=== PATIENT | male | born 1965 | race Caucasian/White ===

== ENCOUNTER 2017-07-05 06:05 | Inpatient (IN) | payer OTHER ==
[~2017-07-05 06:05] MED LIST: ROPIVACAINE 0.2% 80 MG, EPINEPHrine 0.2 MG, KETOROLAC TROMETHAMINE 30 MG in BAG 0 ML IU ONE; TRANEXAMIC ACID 3,000 MG in NS 50 ML IRR ONE
[2017-07-05] MEDS ORDERED: TRANEXAMIC ACID 3,000 MG/50 ML BAG IRR ONE (06:27)
[2017-07-05] MEDS ORDERED: FAMOTIDINE 20 MG TAB PO ONE (07:07)
[2017-07-05] MEDS ORDERED: DEXAMETHASONE 4 MG/ML VIAL IVP ONE (07:07)
[2017-07-05] MEDS ORDERED: ceFAZolin 2 GM/DEXTROSE 100 ML IV ONE (07:07)
[2017-07-05] MEDS ORDERED: ACETAMINOPHEN 325 MG TAB PO ONE (07:07)
--- NOTE | 2017-07-05 07:07 | PDHPUP ---
History & Physical Update H&P update statement: This history and physical update is based on an assessment of the patient which was completed after admission or registration (within 24 hours), but prior to the surgery/procedure. H&P update: H&P reviewed & patient examined, no change in patient's condition since H&P completed
[2017-07-05] MEDS ORDERED: LR 1,000 ML IV ONE (07:08)
[2017-07-05] MEDS ORDERED: LIDOCAINE 1% 2 ML INJ ID PRN (07:08)
[2017-07-05] MEDS ORDERED: MIDAZOLAM 2 MG/2 ML VIAL ONE (08:02)
[2017-07-05] MEDS ORDERED: MIDAZOLAM 2 MG/2 ML VIAL IVP ONE (08:04)
--- NOTE | 2017-07-05 08:04 | PDANEPAE ---
ANE History of Present Illness r hip OA ANE Past Medical History - Cardiovascular History Hx Hypertension: No Hx Arrhythmias: No Hx Chest Pain: No Hx Coronary Artery / Peripheral Vascular Disease: No Hx CHF / Valvular Disease: No Hx Palpitations: No - Pulmonary History Hx COPD: No Hx Asthma/Reactive Airway Disease: No Hx Recent Upper Respiratory Infection: No Hx Oxygen in Use at Home: No Hx Sleep Apnea: No Sleep Apnea Screening Result - Last Documented: Negative Pulmonary History Comment: quit smoking 8 yrs ago. - Neurologic History Hx Cerebrovascular Accident: No Hx Seizures: No Hx Dementia: No - Endocrine History Hx Diabetes: No - Renal History Hx Renal Disorders: No - Liver History Hx Hepatic Disorders: No - Neurological & Psychiatric Hx Hx Neurological and Psychiatric Disorders: Yes Neurological / Psychiatric History Comment: DDD lumbar. chiropractor for tx. cold laser tx bilat hips. - Cancer History Hx Cancer: No - Congenital Disorder History Hx Congenital Disorders: No - GI History Hx Gastrointestinal Disorders: No - Other Health History Other Health History: OA (AVN) -bilat hips. L leg/hip pain over 1 yrs. - Chronic Pain History Chronic Pain: No (bilat hips) - Surgical History Prior Surgeries: 5 plates for rebuild of L side of 16 face fx -orbital shelf -3 surgeries 2009. tonsillectomy-child. ear tubes-child ANE Review of Systems Review of Systems: - Exercise capacity METS (RN): 4 METS ANE Patient History - Allergies Allergies/Adverse Reactions: No Known Allergies Allergy (Verified 06/14/17 10:15) - Home Medications Home Medications: Ibuprofen [Motrin (*)] 800 mg PO BID PRN 06/11/17 [Last Taken 07/02/17] oxyCODONE HCL/ACETAMINOPHEN [Percocet 10-325 mg Tablet] 1 each PO TID PRN [Last Taken 07/04/17] - NPO status NPO Since - Liquids (Date): 07/04/17 NPO Since - Liquids (Time): 21:00 NPO Since - Solids (Date): 07/04/17 NPO Since - Solids (Time): 21:00 - Smoking Hx Smoking Status: Former smoker ANE Labs/Vital Signs - Vital Signs Blood Pressure: 140/90 Heart Rate: 68 Respiratory Rate: 16 O2 Sat (%): 97 Height: 182.88 cm Weight: 95.254 kg ANE Physical Exam - Airway Neck exam: FROM Mallampati Score: Class 1 Mouth exam: normal dental/mouth exam - Pulmonary Pulmonary: no respiratory distress - Cardiovascular Cardiovascular: regular rate and rhythym - ASA Status ASA Status: II ANE Anesthesia Plan Anesthesia Plan: spinal
[2017-07-05] MEDS ORDERED: PROPOFOL/EMULSION 500 MG/50 ML BOTTLE IV ONE (08:07)
[2017-07-05] MEDS ORDERED: fentaNYL 100 MCG/2 ML INJ ONE ×2 (08:07→09:58)
[2017-07-05] MEDS ORDERED: HYDROCODONE/APAP 5/325 TAB PO PRN (08:36)
[2017-07-05] MEDS ORDERED: ONDANSETRON 4 MG/2 ML VIAL IVP PRN ×2 (08:36→09:39)
[2017-07-05] MEDS ORDERED: PROMETHAZINE HCL 25 MG/ML INJ IVP PRN ×2 (08:36→09:39)
[2017-07-05] MEDS ORDERED: HYDROmorphONE/DILAUDID 1 MG/ML INJ IVP PRN (08:36)
[2017-07-05] MEDS ORDERED: NALOXONE HCL 0.4 MG/ML INJ IVP PRN (08:36)
[2017-07-05] MEDS ORDERED: DEXAMETHASONE 4 MG/ML VIAL ONE (09:06)
[2017-07-05] MEDS ORDERED: ONDANSETRON 4 MG/2 ML VIAL ONE (09:06)
[2017-07-05] MEDS ORDERED: PROPOFOL 200 MG/20 ML VIAL ONE (09:34)
[2017-07-05] MEDS ORDERED: MAGNESIUM HYDROXIDE 30 ML UDCUP PO PRN (09:39)
[2017-07-05] MEDS ORDERED: LACTULOSE 20 GM/30 ML UDCUP PO PRN (09:39)
[2017-07-05] MEDS ORDERED: diphenhydrAMINE 25 MG CAP PO PRN (09:39)
[2017-07-05] MEDS ORDERED: POLYETHYLENE GLYCOL 3350 17 GM PKT PO PRN (09:39)
[2017-07-05] MEDS ORDERED: METOCLOPRAMIDE 10 MG/2 ML VIAL IVP PRN (09:39)
[2017-07-05] MEDS ORDERED: PROMETHAZINE HCL 25 MG SUPPR PR PRN (09:39)
[2017-07-05] MEDS ORDERED: BISACODYL 10 MG SUPP PR PRN (09:39)
[2017-07-05] MEDS ORDERED: TEMAZEPAM 15 MG CAP PO PRN (09:39)
[2017-07-05] MEDS ORDERED: DIPHENOXYLATE/ATROPINE LOMOTIL 1 TAB PO PRN (09:39)
[2017-07-05] MEDS ORDERED: CYCLOBENZAPRINE 10 MG TAB PO PRN (09:39)
[2017-07-05] MEDS ORDERED: ONDANSETRON DISINTEGRATING 4 MG TAB PO PRN (09:39)
--- NOTE | 2017-07-05 09:39 | POSTOPPROG ---
Post Op Note Date of Operation: 07/05/17 Surgeon: Moris Fields Pack Train Driver: maurilio fields Anesthesiologist: dr. pritchett Anesthesia: Spinal Pre-op Diagnosis: right hip OA Post-op Diagnosis: same Indication: right hip pain due to OA that failed conservative measures Procedure: R NYDIA ant approach Findings: severe hip OA Inf/Abcess present in the surg proc area at time of surgery?: No EBL: 100-500
--- NOTE | 2017-07-05 09:44 | POSTANESTH ---
Post Anesthetic Evaluation Cardiovascular Status: Normal, Stable Respiratory Status: Normal, Stable Level of Consciousness/Mental Status: Can Participate in Eval Pain Control: Adequate, Prn Tx Ordered Nausea/Vomiting Control: Adequate, Prn Tx Ordered Complications Possibly Related to Anesthesia: None Noted
[2017-07-05] MEDS: fentaNYL 100 MCG/2 ML INJ IVP PRN ×2 (10:00→10:14)
[2017-07-05] MEDS ORDERED: LR 1,000 ML IV SCH (10:00)
[2017-07-05] MEDS: oxyCODONE IR 5 MG TAB PO PRN (12:02)
[2017-07-05] MEDS: ACETAMINOPHEN 325 MG TAB PO SCH ×3 (12:03→22:50)
[2017-07-05] MEDS: ceFAZolin 2 GM/DEXTROSE 100 ML IV SCH ×2 (15:20→21:59)
--- NOTE | 2017-07-05 17:45 | CPEKG ---
Heart Rate: 71 RR Interval: 845 P-R Interval: 156 QRSD Interval: 102 QT Interval: 356 QTC Interval: 387 P [place]: 30 QRS [place]: -22 T Wave [place]: -10 EKG Severity - BORDERLINE ECG - EKG Impression: SINUS RHYTHM EKG Impression: BORDERLINE LEFT AXIS DEVIATION EKG Impression: BORDERLINE T ABNORMALITIES, INFERIOR LEADS Electronically Signed By: René Lua 06-Jul-2017 09:16:37
[2017-07-05 18:24] LABS: CREATINE KINASE-MB FRACTION 0.42 ng/mL (0.00-3.19); TROPONIN I < 0.012 ng/mL (0.000-0.034)
[2017-07-05] MEDS: FAMOTIDINE 20 MG TAB PO SCH (20:03)
[2017-07-05] MEDS: ASPIRIN 325 MG TAB PO SCH (20:03)
[2017-07-05] MEDS: SENNOSIDES/DOCUSATE SODIUM TAB PO SCH (20:04)
--- NOTE | 2017-07-05 20:42 | GCON ---
[f rep st] CONSULTATION MEDICINE CONSULTATION DATE OF CONSULTATION: 07/05/2017 REASON FOR CONSULTATION: Acute chest pain postoperatively. HISTORY: For details, please see the history and physical by Dr. Farias. In brief, the patient is a 51-year-old male who was admitted to the hospital today for elective total right hip arthroplasty. He did well in the postop setting. However, this evening he reported some chest pressure. This was not associated with nausea, diaphoresis, or shortness of breath. This occurred at rest. He states that after short while he passed a large amount of gas and noticed that this chest pressure resolved. At the time of my evaluation, he denies any chest pain, shortness of breath, pleuritic symptoms or abdominal pain. Workup revealed negative troponin. He is noted to have some mild T-wave inversions in his inferior leads of his EKG. Medicine was consulted to ensure he was not having an acute coronary syndrome or other life-threatening event. Cardiac risk factors include gender and prior tobacco use. He denies a history of hypertension, hyperlipidemia, or premature heart disease. PAST MEDICAL HISTORY: 1. Osteoarthritis. 2. Avascular necrosis of the right hip. MEDICATIONS: Please see [employer] for completed outpatient medication list. ALLERGIES: He has no known drug allergies. FAMILY HISTORY: Negative for premature heart disease. SOCIAL HISTORY: He is a former smoker; quit almost 10 years ago. He reports occasional alcohol use. He is . REVIEW OF SYSTEMS: A 10-point review of systems was performed and was negative, except as per HPI. PHYSICAL EXAMINATION: VITAL SIGNS: Temperature is 36.4, blood pressure 138/77 , heart rate 86, respiratory rate 17, he is 94% on room air. GENERAL: The patient is awake, alert, oriented, in no acute distress. HEENT: Head is atraumatic, normocephalic. Pupils equal, round, reactive to light. Extraocular muscles intact. Oropharynx clear. Mucous members are moist. NECK : Supple. There is no JVD. HEART: Regular rate and rhythm without murmur. LUNGS: Clear to auscultation bilaterally. ABDOMEN: Soft, nontender. Normoactive bowel sounds. EXTREMITIES: Warm and well perfused. Sensation is intact. NEUROLOGIC: Grossly nonfocal. LABORATORY DATA: 1. Initial troponin is negative. 2. EKG, as personally reviewed and interpreted, shows normal sinus rhythm. There are no ST changes suggestive of acute ischemia. There are mild T-wave inversions noted in his inferior leads. There is no prior EKG for comparison. ASSESSMENT AND PLAN: The patient is a 51-year-old male, who is postop day 0 from right total hip arthroplasty, who developed chest pain this evening. 1. Chest pain. My suspicion for acute coronary syndrome is low. His initial troponin is negative. His EKG is nonischemic. He does have some mild T-wave inversions in the inferior leads. There is no prior EKG for comparison. He is chest pain-free at the time of my evaluation. He states his chest discomfort resolved after he passed some flatus. He remains hemodynamically stable. We will go ahead and trend his troponin and I will repeat an EKG in the morning to see if there are any further changes in the inferior leads. Given his low risk , I think he would be appropriate for outpatient risk stratification. 2. Right total hip arthroplasty, postop day 0. Further management per the Orthopedics team. 3. Deep venous thrombosis prophylaxis. Will defer to Orthopedics. 4. Disposition. The patient will continue his inpatient status. Thank you very much for this consultation. Medicine will continue to follow your patient. Please do not hesitate to contact us with any further questions or concerns. /[id number]/MODL MTDD
[2017-07-06] MEDS: oxyCODONE IR 5 MG TAB PO PRN ×3 (00:45→12:43)
[2017-07-06 05:21] LABS: HEMATOCRIT 36.6 % (40.0-51.0); HEMOGLOBIN 12.5 g/dL (13.7-17.5)
[2017-07-06] MEDS: ACETAMINOPHEN 325 MG TAB PO SCH ×2 (05:37→12:39)
[2017-07-06 08:45] VITALS: BP 148/83; PULSE 72; RESP 14; TEMP 97.6; O2SAT 97
[2017-07-06] MEDS: ASPIRIN 325 MG TAB PO SCH (09:20)
[2017-07-06] MEDS: FAMOTIDINE 20 MG TAB PO SCH (09:20)
[2017-07-06] MEDS: SENNOSIDES/DOCUSATE SODIUM TAB PO SCH (09:23)
--- NOTE | 2017-07-06 10:04 | CPEKG ---
Heart Rate: 75 RR Interval: 800 P-R Interval: 152 QRSD Interval: 102 QT Interval: 364 QTC Interval: 407 P [place]: 32 QRS [place]: -5 T Wave [place]: 0 EKG Severity - NORMAL ECG - EKG Impression: SINUS RHYTHM Electronically Signed By: René Lua 06-Jul-2017 10:13:12
--- NOTE | 2017-07-06 10:42 | HOSPPROG ---
Hospitalist Progress Note Assessment/Plan: Patient is a 51 y/o male who is s/p right hip arthroplasty who developed chest pain. Today is my first encounter w the patient, chart reviewed. *Chest pain trop stable, repeat ECG nonischemic/ sinus rhythm *Right hip total hip arthroplasty doing great is scheduled to get his left hip in the near future *plan: dc per orthopedics Subjective: Rios is feeling great, attributes his chest pain to gas. Symptoms went away quickly. Objective: Vital Signs Temp Pulse Resp BP Pulse Ox 36.4 C 72 14 148/83 H 97 07/06/17 08:00 07/06/17 08:00 07/06/17 08:00 07/06/17 08:00 07/06/17 08:00 Laboratory Results 07/06/17 04:51 07/05/17 07/06/17 07/07/17 05:59 05:59 05:59 Intake Total 2305 Output Total 1200 Balance 1105 - Physical Exam Constitutional: no apparent distress, appears nourished Eyes: PERRL Ears, Nose, Mouth, Throat: hearing normal Cardiovascular: regular rate and rhythym Respiratory: no respiratory distress Gastrointestinal: normoactive bowel sounds Skin: warm Neurologic: AAOx3 Psychiatric: interacting appropriately ICD10 Worksheet Patient Problems: Problems Problem Status Onset Chest pain Acute - ICD10 Problem Qualifiers (1) Chest pain
--- NOTE | 2017-07-06 11:14 | ASMTCMCOM ---
CM Note CM Note Notes: Reviewed chart. Anticipate dc home independantly. CM available if needs arise. Date Signed: 07/06/2017 11:13 AM Electronically Signed By:Cate Broderick RN
--- NOTE | 2017-07-06 11:32 | SOAPPROG ---
SOAP Progress Note Assessment/Plan: Assessment: Rios is POD 1 s/p R NYDIA 1) pain management: pain is well controlled on oral pain meds. 2) Anemia: level expected initially postop. asymptomatic. continue to monitor 3) VTE ppx: aspirin 325 mg daily for 3 weeks 4) D/c planning: d/c to home today. Plan: 07/06/17 11:30 Subjective: Rios is doing well today, denies SOB, chest pain and N/V. Objective: Vital Signs Temp Pulse Resp BP Pulse Ox 36.4 C 72 14 148/83 H 97 07/06/17 08:00 07/06/17 08:00 07/06/17 08:00 07/06/17 08:00 07/06/17 08:00 Laboratory Results 07/06/17 04:51 07/05/17 07/06/17 07/07/17 05:59 05:59 05:59 Intake Total 2305 Output Total 1200 Balance 1105 RLE: incision dressing is clean and dry, NVI, +pf/df ICD10 Worksheet Patient Problems: Problems Problem Status Onset Chest pain Acute Primary localized osteoarthritis of right hip Acute
--- NOTE | 2017-07-06 13:45 | GDS ---
[f rep st] DISCHARGE SUMMARY ADMISSION DIAGNOSIS: Right hip osteoarthritis. DISCHARGE DIAGNOSIS: Right hip osteoarthritis. PROCEDURE: Right total hip arthroplasty. VTE PROPHYLAXIS: Aspirin recommended for 3 weeks daily. BRIEF DESCRIPTION OF HOSPITAL STAY: Patient was admitted for an elective joint arthroplasty. The pa tient tolerated the procedure well and has passed physical therapy. The patient was given appropriat e antibiotic prophylaxis and venous thromboembolism prophylaxis. The patient's pain was well control led on oral pain medication, patient was holding down food, and had urinated. Decision was made to d ischarge the patient. The patient was given post-operative prescriptions pre-operatively. PLAN: Please follow up as scheduled in 3 weeks. /[id number]/MODL
--- NOTE | 2017-07-07 20:26 | GOP ---
[f rep st] OPERATIVE REPORT DATE OF OPERATION: 07/05/2017 SURGEON: Julia Farias MD RN PALLIATIVE: Kaitlyn Farias PA-C. ANESTHESIA: Spinal. PREOPERATIVE DIAGNOSIS: Right hip osteoarthritis and AVN. POSTOPERATIVE DIAGNOSIS: Right hip osteoarthritis and AVN. PROCEDURE PERFORMED: Total hip arthroplasty. FINDINGS: ESTIMATED BLOOD LOSS: 200 cc. INDICATIONS: The patient has progressively worsening arthritis of the hip which has failed medical management. The patient understands the treatment options including continued non-operative care and has selected surgical intervention. The patient has decided to undergo total hip arthroplasty via the direct anterior approach, understanding the risks of the procedure including , but not limited to, neurovascular injury, infection, persistent pain, component wear and loosening, deep venous thrombosis, pulmonary embolism, limb length inequality, hip instability (including dislocation), and intra-operative fractures. DESCRIPTION OF PROCEDURE: After proper identification of the patient including verification and marking the surgical site, the patient was brought to the operating room and placed in the supine position. All bony prominences were well padded. Anesthesia was induced without complication and intravenous prophylactic antibiotics were administered prior to skin incision. The operative leg was placed in the Trumpf Arch table extension and the well leg in a [place] leg schilling. The patient was prepped and draped in the usual sterile fashion. The C-arm was draped for intra-operative fluoroscopy to check acetabular position, femoral component position including leg length and femoral offset. Attention was then drawn to surgical exposure of the hip. An incision was made with a #10 Bard Qu[place] blade starting 3 cm lateral and 3 cm distal to the anterior superior iliac spine measuring 8-10 cm and coursing distally toward the greater trochanter. The skin and subcutaneous tissues were divided sharply down to the fascia alicja. The fascia alicja was incised in line with the skin incision exposing the underlying tensor fascia alicja muscle. The muscle was bluntly elevated from the fascia and the first extracapsular Cobra retractor was placed laterally at the junction of the superior femoral neck and greater trochanter. The lateral femoral circumflex vessels were identified, cauterized , and divided with the Aquamantys bipolar cautery. The deep investing fascia of the TFL was divided to allow proper mobilization of the muscle preventing damage during the retraction. The reflected head of the rectus femoris muscle was elevated off the anterior hip capsule and a medial Cobra retractor was placed just proximal to the lesser trochanter. The anterior capsulotomy was made sharply from the superolateral acetabulum to the saddle junction of the superior femoral neck and greater trochanter, then coursing inferomedial towards the lesser trochanter. The retractors were then placed in the intracapsular position for femoral neck osteotomy. Corresponding to pre-operative templating, the osteotomy was made with the oscillating saw carefully protecting the greater trochanter and soft tissues. The femoral head was removed from the acetabulum with a corkscrew and confirmed to be severely arthritic with exposed bone, deformity and osteophytes. Similar findings were confirmed in the acetabulum. The Arch table extension was then placed in 40 degrees external rotation. Attention was then drawn to the acetabular preparation. After placement of the anterior and posterior Cobra retractors outside the labrum and intracapsular, the circumferential labrum was removed sharply. The foveal contents were then removed and hemostasis obtained with cautery. The first reamer selected was sized using the removed femoral head. Reaming began with medialization and then commenced in 2 mm increments at 45 degrees of abduction and 15 degrees of anteversion using fluoroscopic navigation. Reaming ceased 1 mm less than the definitive acetabular component and corresponded to the pre-operative templating. The final acetabular component was inserted using fluoroscopy to achieve proper orientation yielding excellent purchase and stability in the acetabulum. The final acetabular liner was then placed and its seating confirmed. Attention was then turned to the femur. The Arch table extension was placed in extension and adduction, delivering the osteotomized femoral neck into the wound. A 2-pronged femoral elevator was placed at the calcar and another at the tip of the greater trochanter. The posterolateral capsule was released with cautery allowing mobilization of the femur lateral and anterior for preparation. The external rotators were visualized and preserved. A curette and rongeur were used to open the starting point for broaching. Serial broaching started with the #0 broach and ended with the broach that exhibited excellent fit in the proximal femur. A change in pitch during mallet strikes was accompanied by the inability to advance the broach any further. The trial reduction was performed and fluoroscopic navigation was utilized to check limb length. Adjustments were made to equalize limb length accordingly. After the final trials were accepted they were removed and the wound was copiously lavaged. The femoral component was seated to the same depth as the final broach and the femoral head was impacted onto the clean trunnion. The hip was then reduced for the final time and once more fluoroscopy was used to check that limb length equality was achieved. The wound was irrigated and closed in layers, the fascia alicja with 2-0 Quill, the subcutaneous tissue with 2-0 Quill, and the skin with Dermabond. Sterile dressings were applied. Final sharps and sponge counts were accurate. The patient was then transferred to a hospital bed and brought to the recovery room in stable condition. IMPLANTS: Accolade II, size 5 at 127. Acetabular component is a 60 mm Tritanium. The liner is a Trident X3, 36 mm. The head is a Biolox Delta, 36 mm -2.5. /[id number]/MODL MTDD
== END 2017-07-06 13:03 | disposition home or self-care (01) | DRG 470 ==
LOC: F3N 06:05
PROVIDERS: ADMIT Orthopaedic Surgery; ATTEND Orthopaedic Surgery
PROC: 0SR904Z Replacement of Right Hip Joint with Ceramic on Polyethylene Synthetic Substitute, Open Approach (ICD-10-PCS; principal; 2017-07-05 08:15)
DX: M16.11 Unilateral primary osteoarthritis, right hip (principal); Z87.891 Personal history of nicotine dependence
CPT/HCPCS: 97116-GP; 97161-GP; 97165-GO; G8978-GP-CJ; G8979-GP-CI; G8980-GP-CI; G8987-GO-CI; G8988-GO-CI; G8989-GO-CI; J0171; J0690; J1100; J1885; J2250; J2405; J2704; J2795; J3010